=== PATIENT | female | born 1995 | race Caucasian/White ===

== ENCOUNTER 2016-09-09 00:04 | Emergency (ER) | payer OTHER ==
[~2016-09-09] VITALS: Ht 167.6 cm; Wt 68.0 kg
[2016-09-09 00:20] VITALS: BP 144/93
[2016-09-09] MEDS ORDERED: AZIT250T6 PO (00:34)
[2016-09-09] MEDS ORDERED: HYDR-971 PO (00:34)
--- NOTE | 2016-09-09 00:34 | PHYS DOC ---
Past Medical History Past Medical History: No Pertinent History Past Surgical History: Cholecystectomy, , Tubal ligation Alcohol Use: None Drug Use: None Adult General Chief Complaint Chief Complaint: EARACHE/EAR PAIN [facility] Patient is a 21 year old female presents emergency room with a complaint of atraumatic left ear pain for approximately 3 hours. Patient reports that she's had problems with earaches in the past. She denies antibiotic use within the past 90 days. She reports that she been having problems with cough and congestion for approximately a week. She denies any fevers or chills. She denies myalgias or arthralgias. Patient states that she currently does not have a primary care doctor that she sees. Review of Systems Review of Systems Constitutional: Denies fever or chills [] Eyes: Denies change in visual acuity, redness, or eye pain [] HENT: Denies nasal congestion or sore throat [] Respiratory: Denies cough or shortness of breath [] Cardiovascular: No additional information not addressed in HPI [] GI: Denies abdominal pain, nausea, vomiting, bloody stools or diarrhea [] : Denies dysuria or hematuria [] Musculoskeletal: Denies back pain or joint pain [] Integument: Denies rash or skin lesions [] Neurologic: Denies headache, focal weakness or sensory changes [] Endocrine: Denies polyuria or polydipsia [] Allergies Allergies Allergies Coded Allergies Type Severity Reaction Last Updated Verified No Known Drug Allergies 10/31/15 No Physical Exam Physical Exam Constitutional: Well developed, well nourished, mild, non-toxic appearance. Patient is tearful. HENT: Normocephalic, atraumatic, bilateral external ears normal, oropharynx moist, no oral exudates, nose normal. Bilateral ear canals are slightly excoriated from Q-tip use. There is no swelling of the ear canals. Left tympanic membrane is bulging and hyperemic. The margins of the elbow are slightly distorted. There is no fluid meniscus or perforation. There is no evidence of mastoiditis. Eyes: PERRLA, EOMI, conjunctiva normal, no discharge. [] Neck: Normal range of motion, no tenderness, supple, no stridor. There is no meningismus. There is bilateral anterior and posterior cervical lymphadenopathy. Cardiovascular:Heart rate regular rhythm, no murmur [] Lungs & Thorax: Bilateral breath sounds clear to auscultation Abdomen: Bowel sounds normal, soft, no tenderness, no masses, no pulsatile masses. [] Skin: Warm, dry, no erythema, no rash. [] Back: No tenderness, no CVA tenderness. [] Extremities: No tenderness, no cyanosis, no clubbing, ROM intact, no edema. [] Neurologic: Alert and oriented X 3, normal motor function, normal sensory function, no focal deficits noted. [] Psychologic: Affect normal, judgement normal, mood normal. [] Current Patient Data Vital Signs Vital Signs Date Time Temp Pulse Resp B/P Pulse Ox O2 Delivery O2 Flow Rate FiO2 09/09/16 00:20 97.6 94 18 96 Room Air 97.6 EKG EKG [] Radiology/Procedures Radiology/Procedures [] Course & Med Decision Making Course & Med Decision Making Pertinent Labs and Imaging studies reviewed. (See chart for details) [] Dragon Disclaimer Dragon Disclaimer This electronic medical record was generated, in whole or in part, using a voice recognition dictation system. Departure Departure Impression: Primary Impression: Otitis media Disposition: 01 HOME, SELF-CARE Condition: GOOD Referrals: NO PCP (PCP) Patient Instructions: Otitis Media, Adult, [id number] Additional Instructions: 1. Take the medication as prescribed. 2. Review discharge paperwork for reasons to return to the emergency room. 3. Use the pamphlet provided to you for assistance in finding a primary care doctor's office to follow up with an address your medical concerns. Please call in the morning to schedule follow-up appointment for reevaluation within a week' s time. Scripts Azithromycin (Azithromycin Tablet)250 Mg Tablet1 Pkg PO UD #6 TAB Prov:JOVAN OLMOS 09/09/16 Hydrocodone/Apap 5-325 (Urania 5-325 Tablet)1 Each Tablet1 Tab PO PRN Q6HRS PRN PAIN #15 TAB Prov:JOVAN OLMOS 09/09/16 JOVAN OLMOS Sep 09, 2016 00:34
== END 2016-09-09 00:43 | disposition home or self-care (01) ==
LOC: ER 00:04
DX: H66.92 Otitis media, unspecified, left ear (principal)
CPT/HCPCS: 99283

== ENCOUNTER 2018-11-27 18:27 | Emergency (ER) | payer BC, OTHER ==
[~2018-11-27 18:27] MED LIST: AZIT250T6 PO; HYDR-3164 PO
== END 2018-11-27 19:26 | disposition left against medical advice (07) ==
LOC: ER 18:27
DX: R55 Syncope and collapse (principal); Z53.21 Procedure and treatment not carried out due to patient leaving prior to being seen by health care provider

== ENCOUNTER 2019-05-31 20:58 | Emergency (ER) | payer BC ==
[~2019-05-31] VITALS: Ht 167.6 cm; Wt 74.2 kg
[2019-05-31 21:18] VITALS: BP 122/69
[2019-05-31] MEDS ORDERED: ONDANSETRON ODT 4 MG TAB.RAPDIS. PO ONE (22:00)
[2019-05-31] MEDS ORDERED: ONDA4TAB12 PO (22:01)
[2019-05-31 22:10] LABS: BILIRUBIN,URINE NEGATIVE (NEG); CLARITY,URINE CLEAR; COLOR,URINE YELLOW; NITRITE,URINE NEGATIVE (NEG); PROTEIN,URINE NEGATIVE (NEG-TRACE); UROBILINOGEN,URINE 0.2 mg/dL (0.2 mg/dL)
[2019-05-31 22:13] LABS: SQUAMOUS EPITHELIAL CELL,UR MANY /LPF
[2019-05-31 22:14] LABS: BACTERIA,URINE MODERATE /HPF (0-FEW); RBC,URINE 0 /HPF (0-2)
[2019-05-31] MEDS ORDERED: CEPH500T PO (22:33)
--- NOTE | 2019-05-31 22:39 | PHYS DOC ---
Past Medical History Past Medical History: No Pertinent History Past Surgical History: Cholecystectomy, , Tubal ligation Alcohol Use: Occasionally Drug Use: None Adult General Chief Complaint Chief Complaint: NAUSEA/VOMITING/[facility] HPI Patient is a 23 year old female presents with chief complaint of nausea vomiting feeling chills she's had these symptoms for 2 days now she has 2 out of 3 of her kids at home are sick with the same symptoms no diarrhea but the stool softer than normal no abdominal pain at this time. She had some a few minutes of sharp left upper quadrant pain earlier in the day while she was at work but that has gone away. Denies any urinary symptoms at this time. She is just finishing up around of treatment for bacterial vaginosis she told the nursing staff. Review of Systems Review of Systems Constitutional: Denies fever or chills [] Eyes: Denies change in visual acuity, redness, or eye pain [] HENT: Denies nasal congestion or sore throat [] Respiratory: Denies cough or shortness of breath [] Cardiovascular: No additional information not addressed in HPI [] GI: Denies abdominal pain, nausea, vomiting, bloody stools or diarrhea [] : Denies dysuria or hematuria [] Musculoskeletal: Denies back pain or joint pain [] Integument: Denies rash or skin lesions [] Neurologic: Denies headache, focal weakness or sensory changes [] Endocrine: Denies polyuria or polydipsia [] All other systems were reviewed and found to be within normal limits, except as documented in this note. Current Medications Current Medications Current Medications Medications (Trade) Dose Ordered Sig/[facility] Start Time Stop Time Status Last Admin Dose Admin Ondansetron HCl (Zofran Odt) 4 mg 1X ONCE 05/31/19 22:00 05/31/19 22:01 DC 05/31/19 22:00 4 MG Allergies Allergies Allergies Coded Allergies Type Severity Reaction Last Updated Verified No Known Drug Allergies 10/31/15 No Physical Exam Physical Exam Constitutional: Well developed, well nourished, no acute distress, non-toxic appearance. [] HENT: Normocephalic, atraumatic, bilateral external ears normal, oropharynx moist, no oral exudates, nose normal. [] Eyes: PERRLA, EOMI, conjunctiva normal, no discharge. [] Neck: Normal range of motion, no tenderness, supple, no stridor. [] Pulmonary: Normal respiratory effort no increased work of breathing no obvious chest wall trauma Abdomen: , soft, no tenderness, no masses, no pulsatile masses. [] Skin: Warm, dry, no erythema, no rash. [] Back: No tenderness, no CVA tenderness. [] Extremities: No tenderness, no cyanosis, no clubbing, ROM intact, no edema. [] Neurologic: Alert and oriented X 3, normal motor function, normal sensory function, no focal deficits noted. [] Psychologic: Affect normal, judgement normal, mood normal. [] Current Patient Data Vital Signs Vital Signs Date Time Temp Pulse Resp B/P (MAP) Pulse Ox O2 Delivery O2 Flow Rate FiO2 05/31/19 21:18 98.2 81 16 122/69 (86) 100 Room Air 98.2 Lab Values Laboratory Tests Test 05/31/19 22:03 05/31/19 22:04 Urine Collection Type Unknown Urine Color Yellow Urine Clarity Clear Urine pH 6.0 Urine Specific [place] 1.015 Urine Protein Negative mg/dL (NEG-TRACE) Urine Glucose (UA) Negative mg/dL (NEG) Urine Ketones (Stick) Negative mg/dL (NEG) Urine Blood Negative (NEG) Urine Nitrite Negative (NEG) Urine Bilirubin Negative (NEG) Urine Urobilinogen Dipstick 0.2 mg/dL (0.2 mg/dL) Urine Leukocyte Esterase Moderate (NEG) Urine RBC 0 /HPF (0-2) Urine WBC 11-20 /HPF (0-4) Urine Squamous Epithelial Cells Many /LPF Urine Bacteria Moderate /HPF (0-FEW) Urine Mucus Marked /LPF POC Urine HCG, Qualitative Hcg negative (Negative) EKG EKG [] Radiology/Procedures Radiology/Procedures [] Course & Med Decision Making Course & Med Decision Making Pertinent Labs and Imaging studies reviewed. (See chart for details) []23-year-old female presenting with vomiting and chills abdomen totally benign well-appearing vitals look good sick contacts at home UA noted it may be a UTI could be contaminated is started on Keflex culture sent Zofran as needed for nausea and vomiting I don't think she needs a lab workup at this time she is very well-appearing Dragon Disclaimer Dragon Disclaimer This electronic medical record was generated, in whole or in part, using a voice recognition dictation system. Departure Departure Impression: Primary Impression: Nausea & vomiting Disposition: 01 HOME, SELF-CARE Condition: STABLE Patient Instructions: Nausea and Vomiting, [id number] Scripts Cephalexin (CEPHALEXIN) 500 Mg Tablet 1 TAB PO TID, #21 TAB Prov: FELICITY KAUR MD 05/31/19 Ondansetron (ONDANSETRON ODT) 4 Mg Tab.rapdis 0.5 TAB PO PRN Q6-8HRS, #8 TAB Prov: FELICITY KAUR MD 05/31/19 FELICITY KAUR MD May 31, 2019 22:39
== END 2019-05-31 22:40 | disposition home or self-care (01) ==
LOC: ER 20:58
DX: R11.2 Nausea with vomiting, unspecified (principal); R10.12 Left upper quadrant pain; R68.83 Chills (without fever); Z90.49 Acquired absence of other specified parts of digestive tract; Z98.890 Other specified postprocedural states; Z98.51 Tubal ligation status
CPT/HCPCS: 81001; 81025; 87086; 99284; Q0162

== ENCOUNTER 2020-05-14 16:28 | Emergency (ER) | payer SELFPAY ==
[~2020-05-14] VITALS: Ht 167.6 cm; Wt 70.0 kg
[~2020-05-14 16:28] MED LIST changes: +CEPH500T PO; +ONDA4TAB12 PO
[2020-05-14 17:05] VITALS: BP 124/68
--- NOTE | 2020-05-14 17:51 | PHYS DOC ---
Past Medical History Past Medical History: No Pertinent History Past Surgical History: Cholecystectomy, , Tubal ligation Smoking Status: Current Some Day Smoker Alcohol Use: Occasionally Drug Use: None General Adult EDM: Chief Complaint: SORE THROAT HPI: HPI: Patient is a 24 year old female who presented to ER complaint of sore throat and nonproductive cough for 2 days. Patient also feels very gaseous for the last 3 weeks. Patient says she was tested positive for COVID-19 at the end of March of this year. Patient works at [employer]. Patient denies any abdominal pain, no nausea vomiting. Patient denies any chest pain, no trouble breathing, no headache, no neck pain, no fever. Review of Systems: Review of Systems: Constitutional: Denies fever or chills. [] Eyes: Denies change in visual acuity. [] HENT: No nasal congestion, positive sore throat Respiratory: Positive for cough, no trouble breathing. Cardiovascular: Denies chest pain or edema. [] GI: Denies abdominal pain, nausea, vomiting, bloody stools or diarrhea. [] : Denies dysuria. [] Musculoskeletal: Denies back pain or joint pain. [] Integument: Denies rash. [] Neurologic: Denies headache, focal weakness or sensory changes. [] Endocrine: Denies polyuria or polydipsia. [] Lymphatic: Denies swollen glands. [] Psychiatric: Denies depression or anxiety. [] Heart Score: Risk Factors: Risk Factors: DM, Current or recent (<one month) smoker, HTN, HLP, family history of CAD, obesity. Risk Scores: Score 0 - 3: 2.5% MACE over next 6 weeks - Discharge Home Score 4 - 6: 20.3% MACE over next 6 weeks - Admit for Clinical Observation Score 7 - 10: 72.7% MACE over next 6 weeks - Early Invasive Strategies Allergies: Allergies: Allergies Coded Allergies Type Severity Reaction Last Updated Verified No Known Drug Allergies 10/31/15 No Physical Exam: PE: Constitutional: Well developed, well nourished, no acute distress, non-toxic appearance. [] HENT: Normocephalic, atraumatic, bilateral external ears normal, oropharynx moist, no oral exudates, nose normal. [] Eyes: PERRLA, EOMI, conjunctiva normal, no discharge. [] Neck: Normal range of motion, no tenderness, supple, no stridor. [] Cardiovascular:Heart rate regular rhythm, no murmur [] Lungs & Thorax: Bilateral breath sounds clear to auscultation [] Abdomen: Bowel sounds normal, soft, no tenderness, no masses, no pulsatile masses. [] Skin: Warm, dry, no erythema, no rash. [] Back: No tenderness, no CVA tenderness. [] Extremities: No tenderness, no cyanosis, no clubbing, ROM intact, no edema. [] Neurologic: Alert and oriented X 3, normal motor function, normal sensory function, no focal deficits noted. [] Psychologic: Affect normal, judgement normal, mood normal. [] Current Patient Data: Labs: Laboratory Tests Test 05/14/20 17:29 POC Urine HCG, Qualitative Hcg negative (Negative) Vital Signs: Vital Signs Date Time Temp Pulse Resp B/P (MAP) Pulse Ox O2 Delivery O2 Flow Rate FiO2 05/14/20 17:05 98.0 82 20 124/68 (86) 98 Room Air 98.0 EKG: EKG: [] Radiology/Procedures: Radiology/Procedures: [][facility] [address] [place] [address] IMAGING REPORT Signed PATIENT: AUSTIN WEINBERG RACCOUNT: [id number] : 1995 LOCATION: ER AGE: 24 SEX: F EXAM STATUS: REG ER ORD. PHYSICIAN: MIKE DUMAS DO REASON: cough, soa, tested positive for COVID ON 04/04/20 PROCEDURE: CHEST AP ONLY CHEST AP ONLY Clinical indications: Reason: cough, shortness of air, tested positive for COVID ON 04/04/20 COMPARISON: None available. Findings: No acute lung infiltrate or pleural effusion or pulmonary edema or lung mass or pneumothorax is seen. The heart size, pulmonary vasculature, mediastinum and both matthew are unremarkable. Impression: No acute radiographic abnormality is seen. Electronically signed by: Renaldo Sharma MD (05/14/2020 5:50 PM) [id number] DICTATED and SIGNED BY: RENALDO SHARMA MD DATE: 09/08/20 1750 Course & Med Decision Making: Course & Med Decision Making Pertinent Labs and Imaging studies reviewed. (See chart for details) Patient is a 24-year-old female who presented to ER with viral symptomS, patient was tested positive for COVID-19 at the ED and of March, it is unlikely that she is reinfected again. Patient strep test came back negative. Her chest x-ray was negative as well. Patient was in stable condition, she was in no acute distress, her vital signs was normal. No further work-up needed at this time. Dragon Disclaimer: [employer] Disclaimer: This electronic medical record was generated, in whole or in part, using a voice recognition dictation system. Departure Departure Impression: Primary Impression: Viral syndrome Disposition: HOME, SELF-CARE Condition: STABLE Referrals: NO PCP (PCP) please follow up with your doctor as needed. Patient Instructions: Viral Syndrome Additional Instructions: Thank you for visiting our Emergency Department. We appreciate you trusting us with your care. If any additional problems come up don't hesitate to return to visit us. Please follow up with your primary care provider so they can plan additional care if needed and know about the problem that you had. If symptoms worsen come back to the Emergency Department. Any concerning symptoms that start such as chest pain, shortness of air, weakness or numbness on one side of the body, running high fevers or any other concerning symptoms return to the ER. Justicifation of Admission Dx: Justifications for Admission: Justification of Admission Dx: N/A MIKE DUMAS DO May 14, 2020 17:51
[2020-05-14 17:55] LABS: COLOR,URINE YELLOW
[2020-05-14 17:56] LABS: BILIRUBIN,URINE NEGATIVE (NEG); CLARITY,URINE CLEAR; NITRITE,URINE NEGATIVE (NEG); PROTEIN,URINE NEGATIVE (NEG-TRACE); UROBILINOGEN,URINE 0.2 mg/dL (0.2 mg/dL)
[2020-05-14 17:57] LABS: BACTERIA,URINE MODERATE /HPF (0-FEW); SQUAMOUS EPITHELIAL CELL,UR MOD /LPF
== END 2020-05-14 17:59 | disposition home or self-care (01) ==
LOC: ER 16:28
DX: B34.9 Viral infection, unspecified (principal); J02.9 Acute pharyngitis, unspecified; R05 Cough; F17.200 Nicotine dependence, unspecified, uncomplicated; Z90.49 Acquired absence of other specified parts of digestive tract; Z98.890 Other specified postprocedural states; Z98.51 Tubal ligation status
CPT/HCPCS: 71045; 81001; 81025; 87070; 87086; 87880; 99284

== ENCOUNTER 2022-01-13 21:34 | Emergency (ER) | payer SELFPAY ==
[~2022-01-13] VITALS: Ht 167.6 cm; Wt 60.5 kg
[2022-01-13 22:33] VITALS: BP 108/79
== END 2022-01-14 00:15 | disposition left against medical advice (07) ==
LOC: ER 21:34
DX: N39.0 Urinary tract infection, site not specified (principal); Z53.21 Procedure and treatment not carried out due to patient leaving prior to being seen by health care provider